=== PATIENT | female | born 1970 | race Caucasian/White ===

== ENCOUNTER → 2021-01-25 | Outpatient (CLI) | payer BC, OTHER ==
[~2021-01-25] MED LIST: ACIPHEX20 MG PO; ANUSOL-HC CREAM30 GM PR; BENICAR20 MG PO; CITRATE OF MAG296 ML PO; COLACE100 MG PO; FLONASE 0.05% N16 GM; HYDROCODON-ACE1 EAC2 PO; IBUPROFEN600 MG PO; LEXAPRO20 MG PO; LOPRESSOR50 MG PO; MYRBETRIQ50 MG PO; NORCO 5-325 TA1 EACH PO; ONDANSETRON HCL4 MG PO; PRAVACHOL40 MG PO; SINGULAIR10 MG PO; TRAZODONE HCL50 MG PO; TYLENOL EXTRA500 MG PO; ZANAFLEX 4 MG TA4 MG PO; ZETIA10 MG PO
== END ==
LOC: EXRD 10:01
DX: M54.2 Cervicalgia (principal); M48.02 Spinal stenosis, cervical region; M51.16 Intervertebral disc disorders with radiculopathy, lumbar region
CPT/HCPCS: 72040; 72070; 72100

== ENCOUNTER → 2021-03-11 | Outpatient (CLI) | payer BC ==
[~2021-03-11] MED LIST changes: +CEFUROXIME500 MG PO; +DECADRON6 MG PO; +IPRAT-ALBUT 0.5-3 ML NEB; +METOPROLOL SUCC50 MG PO; +PREDNISONE 10 M10 MG PO; +PROAIR DIGIHAL90 MCG INH; +RELAFEN500 MG PO; +SUMATRIPTAN SUC50 MG PO; +TIZANIDINE HCL4 MG PO; +VITAMIN C 500500 MG PO; +XYZAL5 MG PO
[2021-03-12 11:34] LABS: RHEUMATOID ARTHRITIS FACTOR <10.0 IU/mL (0.0-13.9)
== END ==
LOC: LAB 10:07
PROVIDERS: Nurse Practitioner Family
DX: M25.50 Pain in unspecified joint (principal); M79.10 Myalgia, unspecified site
CPT/HCPCS: 36415; 82550; 82728; 83520; 85652; 86140; 86200; 86431

== ENCOUNTER 2021-04-16 18:09 | Inpatient (IN) | payer BC ==
[~2021-04-16] VITALS: Ht 157.5 cm; Wt 55.8 kg
[~2021-04-16 18:09] MED LIST changes: -ACIPHEX20 MG PO; -CEFUROXIME500 MG PO; -DECADRON6 MG PO; -FLONASE 0.05% N16 GM; -IPRAT-ALBUT 0.5-3 ML NEB; -LEXAPRO20 MG PO; -METOPROLOL SUCC50 MG PO; -MYRBETRIQ50 MG PO; -PROAIR DIGIHAL90 MCG INH; -RELAFEN500 MG PO; -SUMATRIPTAN SUC50 MG PO; -TIZANIDINE HCL4 MG PO; -TRAZODONE HCL50 MG PO; -VITAMIN C 500500 MG PO; -XYZAL5 MG PO
[2021-04-16 20:25] LABS: HEMOGLOBIN 14.1 gm/dl (12.3-15.3); RED BLOOD COUNT 4.71 M/UL (4.00-5.10); WHITE BLOOD COUNT 3.3 K/UL (4.5-11.0)
[2021-04-16 21:03] LABS: BUN/CREATININE RATIO 18 (0-10)
[2021-04-17] MEDS ORDERED: TRAZODONE HCL50 MG PO (02:14)
[2021-04-17] MEDS ORDERED: MYRBETRIQ50 MG PO (02:19)
[2021-04-17 04:17] LABS: HEMOGLOBIN 12.7 gm/dl (12.3-15.3)
[2021-04-17 04:19] LABS: RED BLOOD COUNT 4.22 M/UL (4.00-5.10)
[2021-04-17 04:42] LABS: BUN/CREATININE RATIO 16 (0-10)
[2021-04-17] MEDS ORDERED: ACIPHEX20 MG PO (06:54)
[2021-04-17] MEDS ORDERED: LEXAPRO20 MG PO (06:55)
[2021-04-17] MEDS ORDERED: FLONASE 0.05% N16 GM (06:57)
[2021-04-17] MEDS ORDERED: PROAIR DIGIHAL90 MCG INH (13:06)
[2021-04-17] MEDS ORDERED: XYZAL5 MG PO (13:09)
[2021-04-17] MEDS ORDERED: METOPROLOL SUCC50 MG PO (13:10)
[2021-04-17] MEDS ORDERED: RELAFEN500 MG PO (13:11)
[2021-04-17] MEDS ORDERED: TIZANIDINE HCL4 MG PO (13:13)
[2021-04-17] MEDS ORDERED: SUMATRIPTAN SUC50 MG PO (13:14)
[2021-04-17] MEDS ORDERED: TYLENOL EXTRA500 MG PO (13:17)
[2021-04-18 04:33] LABS: HEMOGLOBIN 12.9 gm/dl (12.3-15.3); RED BLOOD COUNT 4.35 M/UL (4.00-5.10)
[2021-04-18 04:40] LABS: WHITE BLOOD COUNT 6.4 K/UL (4.5-11.0)
[2021-04-18 04:52] LABS: BUN/CREATININE RATIO 17 (0-10)
[2021-04-19 07:21] LABS: HEMOGLOBIN 12.9 gm/dl (12.3-15.3); RED BLOOD COUNT 4.57 M/UL (4.00-5.10); WHITE BLOOD COUNT 7.7 K/UL (4.5-11.0)
[2021-04-19 08:00] LABS: BUN/CREATININE RATIO 16 (0-10)
[2021-04-20 08:09] LABS: BUN/CREATININE RATIO 22 (0-10)
[2021-04-21] MEDS ORDERED: VITAMIN C 500500 MG PO (10:21)
[2021-04-21] MEDS ORDERED: CEFUROXIME500 MG PO (10:21)
[2021-04-21] MEDS ORDERED: DECADRON6 MG PO (10:21)
[2021-04-21] MEDS ORDERED: IPRAT-ALBUT 0.5-3 ML NEB (10:21)
== END 2021-04-21 12:00 | disposition home or self-care (01) | DRG 177 ==
LOC: ER1 18:09 → MED SURG 4 20:42 → CDU 20:42 → MED SURG 4 04-18 23:58
PROVIDERS: Internal Medicine; Physician Assistant; ADMIT Internal Medicine
PROC: XW033E5 Introduction of Remdesivir Anti-infective into Peripheral Vein, Percutaneous Approach, New Technology Group 5 (ICD-10-PCS; principal; 2021-04-16)
PROC: 3E0333Z Introduction of Anti-inflammatory into Peripheral Vein, Percutaneous Approach (ICD-10-PCS; 2021-04-16)
PROC: 8E0ZXY6 Isolation (ICD-10-PCS; 2021-04-18)
DX: U07.1 COVID-19 (principal); J12.82 Pneumonia due to coronavirus disease 2019; J96.01 Acute respiratory failure with hypoxia; I10 Essential (primary) hypertension; M19.90 Unspecified osteoarthritis, unspecified site; E78.5 Hyperlipidemia, unspecified; Z96.643 Presence of artificial hip joint, bilateral; Z99.81 Dependence on supplemental oxygen; Z90.49 Acquired absence of other specified parts of digestive tract; Z90.710 Acquired absence of both cervix and uterus; Z87.442 Personal history of urinary calculi; Z88.1 Allergy status to other antibiotic agents; Z82.49 Family history of ischemic heart disease and other diseases of the circulatory system
CPT/HCPCS: 36415; 36600; 71045; 71046; 80048; 80053; 82550; 82553; 82803; 83605; 83874; 84484; 85025; 85379; 87040; 93005; 94640; 94760; 96374; 99284; 99285; G0378; J0692; J1100; J1650; J2405; J7030; M0243; Q9967; U0002

== ENCOUNTER 2021-05-07 05:48 | Emergency (ER) | payer BC ==
[~2021-05-07 05:48] MED LIST changes: +ACIPHEX20 MG PO; +CEFUROXIME500 MG PO; +DECADRON6 MG PO; +FLONASE 0.05% N16 GM; +IPRAT-ALBUT 0.5-3 ML NEB; +LEXAPRO20 MG PO; +METOPROLOL SUCC50 MG PO; +MYRBETRIQ50 MG PO; +PROAIR DIGIHAL90 MCG INH; +RELAFEN500 MG PO; +SUMATRIPTAN SUC50 MG PO; +TIZANIDINE HCL4 MG PO; +TRAZODONE HCL50 MG PO; +VITAMIN C 500500 MG PO; +XYZAL5 MG PO
[2021-05-07 07:33] LABS: HEMOGLOBIN 11.9 gm/dl (12.3-15.3); RED BLOOD COUNT 4.14 M/UL (4.00-5.10); WHITE BLOOD COUNT 6.4 K/UL (4.5-11.0)
[2021-05-07 07:59] LABS: BUN/CREATININE RATIO 13 (0-10)
== END 2021-05-07 09:10 | disposition home or self-care (01) ==
LOC: ER1 05:48
PROVIDERS: Physician Assistant
DX: U07.1 COVID-19 (principal); R09.02 Hypoxemia
CPT/HCPCS: 71045; 80053; 82550; 82553; 83874; 83880; 84484; 85025; 93005; 99285

== ENCOUNTER → 2021-07-12 | Outpatient (CLI) | payer BC ==
[2021-07-12 13:01] LABS: HEMOGLOBIN 14.8 gm/dl (12.3-15.3); WHITE BLOOD COUNT 3.9 K/UL (4.5-11.0)
[2021-07-12 13:29] LABS: BUN/CREATININE RATIO 14 (0-10)
[2021-07-15 15:09] LABS: ALDOLASE 5.8 U/L (3.3-10.3)
== END ==
LOC: LAB 12:12
PROVIDERS: Internal Medicine; Nurse Practitioner Family
DX: U07.1 COVID-19 (principal); M25.50 Pain in unspecified joint; R74.8 Abnormal levels of other serum enzymes; Z00.00 Encounter for general adult medical examination without abnormal findings; I10 Essential (primary) hypertension; N30.10 Interstitial cystitis (chronic) without hematuria; M54.12 Radiculopathy, cervical region; J30.9 Allergic rhinitis, unspecified; R53.83 Other fatigue; E53.8 Deficiency of other specified B group vitamins; E55.9 Vitamin D deficiency, unspecified
CPT/HCPCS: 36415; 71046; 80053; 80061; 82085; 82550; 82607; 83516; 83615; 83874; 84439; 84443; 85025; 86235

== ENCOUNTER → 2021-09-23 | Outpatient (CLI) | payer BC | LOC: KOH-I 09-20 10:00 | DX: R10.9 Unspecified abdominal pain (principal); R31.9 Hematuria, unspecified; N20.0 Calculus of kidney | CPT/HCPCS: 74176 ==

== ENCOUNTER → 2022-05-07 | Outpatient (CLI) | payer BC | LOC: KOH-I 14:20 | DX: M50.122 Cervical disc disorder at C5-C6 level with radiculopathy (principal) | CPT/HCPCS: 72040 ==